=== PATIENT | female | born 1945 | race Caucasian/White ===

== ENCOUNTER 2019-01-25 14:00 | Inpatient (IN) | payer OTHER ==
[~2019-01-25] VITALS: Ht 154.9 cm; Wt 75.3 kg
[2019-01-30] MEDS ORDERED: AVALIDE 300-121 EACH PO (10:13)
[2019-01-30] MEDS ORDERED: NORVASC2.5 M1 PO (10:13)
[2019-01-30] MEDS ORDERED: TAPAZOLE5 M1 PO (10:14)
[2019-01-30] MEDS ORDERED: GLIPIZIDE5 MG PO (10:14)
[2019-01-30] MEDS ORDERED: PAXIL20 MG PO (10:15)
[2019-01-30] MEDS ORDERED: NEURONTIN800 MG PO (10:16)
[2019-01-30] MEDS ORDERED: CLONAZEPAM2 MG PO (10:16)
[2019-01-31] MEDS ORDERED: AMOX-CLAV 875-1 EACH PO (12:20)
[2019-01-31] MEDS ORDERED: DOCUSATE SODIU100 MG PO (12:20)
[2019-01-31] MEDS ORDERED: GABAPENTIN800 MG PO (12:20)
[2019-01-31] MEDS ORDERED: PERCOCET 5-3251 EACH PO (12:20)
[2019-01-31] MEDS ORDERED: CLONAZEPAM1 MG PO (12:20)
== END 2019-02-01 15:58 | DRG 455 ==
LOC: O/R 01-31 06:00 → SURH 01-31 06:00
PROVIDERS: ADMIT Orthopaedic Surgery Orthopaedic Surgery of the Spine
PROC: 0SG1071 Fusion of 2 or more Lumbar Vertebral Joints with Autologous Tissue Substitute, Posterior Approach, Posterior Column, Open Approach (ICD-10-PCS; 2019-01-31)
PROC: 01NB0ZZ Release Lumbar Nerve, Open Approach (ICD-10-PCS; 2019-01-31)
PROC: 07DS0ZZ Extraction of Vertebral Bone Marrow, Open Approach (ICD-10-PCS; 2019-01-31)
PROC: 0SG10AJ Fusion of 2 or more Lumbar Vertebral Joints with Interbody Fusion Device, Posterior Approach, Anterior Column, Open Approach (ICD-10-PCS; principal; 2019-01-31 15:30)
DX: M43.16 Spondylolisthesis, lumbar region (principal); M48.062 Spinal stenosis, lumbar region with neurogenic claudication; E11.9 Type 2 diabetes mellitus without complications; I10 Essential (primary) hypertension; E21.2 Other hyperparathyroidism